=== PATIENT | female | born 1990 | race Caucasian/White ===

== ENCOUNTER 2023-11-09 12:45 | Outpatient (CLI) | payer OTHER, SELFPAY ==
--- NOTE | ~2023-11-09 | US_ITS ---
US breast LT limited DATE: 11/09/2023 13:40 INDICATION: Patient felt a lump in the left breast tail last week but does not feel the lump today. TECHNIQUE: Real-time and color flow imaging was performed in the area of clinical complaint at 1-2:00 from the nipple into the left axillary tail. COMPARISON: None FINDINGS: No suspicious mass or shadowing or suspicious vascularity, cyst or other significant abnorm al finding is noted. IMPRESSION: Negative examination Recommendation: Routine mammographic screening. Age 40 unless there are earlier symptoms or clinical findings. Reviewed, dictated and finalized at [facility]. Reviewed, dictated and finalized at [facility]. 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
== END 2023-11-09 12:46 | disposition home or self-care (01) ==
LOC: ANHIMG 12:50
PROVIDERS: Visit Provider Student in an Organized Health Care Education/Training Program
DX: N63.20 Unspecified lump in the left breast, unspecified quadrant (principal)
CPT/HCPCS: 76642

== ENCOUNTER 2024-02-23 14:49 | Outpatient (CLI) | payer OTHER, SELFPAY ==
[2024-02-25 02:04] LABS: DHEA-Sulfate 156 mcg/dL (19-237)
[2024-02-25 02:39] LABS: FSH 2.5 mIU/mL
[2024-02-25 19:38] LABS: Testosterone Total 79 ng/dL (2-45)
[2024-02-28 19:03] LABS: Anti Mullerian Hormone,Female 20.66 ng/mL (0.36-10.07)
[2024-03-04 04:58] LABS: Estradiol, Ultrasensitive 253 pg/mL
== END 2024-02-23 14:50 | disposition home or self-care (01) ==
LOC: ANHLAB 14:50
PROVIDERS: Visit Provider Student in an Organized Health Care Education/Training Program
DX: N91.2 Amenorrhea, unspecified (principal)
CPT/HCPCS: 36415; 82627; 82670; 83001; 84146; 84403; 84443

== ENCOUNTER 2024-12-03 09:26 | Emergency (ER) | payer OTHER, SELFPAY ==
[2024-12-03 09:28] VITALS: BP 111/74; PULSE 100; RESP 18; TEMP 36.3; O2SAT 100
[2024-12-03 09:46] VITALS: BP 125/85; PULSE 91; RESP 16; TEMP 36.9; O2SAT 100
[2024-12-03 10:01] VITALS: BP 124/99; PULSE 80; RESP 20; O2SAT 100
[2024-12-03 10:09] LABS: Basophils Percent Auto 0.5 % (0.2-1.2); Eosinophils Absolute Auto 0.2 K/mm3 (0-0.3); Hematocrit 42.1 % (37.0-47.0); Hemoglobin 14.1 g/dL (12.0-15.0); Immature Granulocyte Absolute 0.01 K/mm3 (0.00-0.031); Immature Granulocyte Percent A 0.2 % (0-0.5); Lymphocytes Absolute Auto 1.65 K/mm3 (0.9-3.2); Lymphocytes Percent Auto 27.1 % (18.3-44.2); Mean Corpuscular HGB Conc 33.5 g/dl (32-36); Mean Corpuscular Hemoglobin 30.5 pg (26-34); Mean Corpuscular Volume 91.1 fl (80-100); Mean Platelet Volume 10.7 fl (7.4-10.4); Monocytes Absolute Auto 0.6 K/mm3 (0.1-0.6); Neutrophils Absolute Auto 3.7 K/mm3 (1.3-6.7); Neutrophils Percent Auto 60.2 % (45.5-73.1); Platelet Count Result 219 k/mm3 (150-375); Red Blood Count 4.62 M/mm3 (4.2-5.4); Red Cell Distribution Width 12.9 % (11.5-14.5); White Blood Count 6.1 K/mm3 (4.5-10.0)
[2024-12-03 10:12] LABS: Alanine Aminotransferase 14 U/L (6-35); Albumin Level 4.3 g/dL (3.5-5.1); Alkaline Phosphatase 62 U/L (38-126); Anion Gap 12 mmol/L (4-12); Aspartate Amino Transferase 22 U/L (14-36); Bilirubin,Total 0.4 mg/dL (0.2-1.3); Blood Urea Nitrogen 16 mg/dL (7-17); Calcium 9.1 mg/dL (8.4-10.2); Carbon Dioxide 20 mmol/L (22-30); Chloride 107 mmol/L (98-107); Estimated CRCL calculation 82 ml/min; Estimated Glomerular Filt Rate > 60; Glucose 106 mg/dL (65-110); Lipase 84 U/L (23-300); Partial Thromboplastin Time 25.5 Seconds (22.3-36.8); Potassium 3.7 mmol/L (3.4-5.0); Prothrombin Time 13.3 Seconds (11.1-14.7); Sodium 139 mmol/L (137-145)
[2024-12-03 10:25] LABS: Troponin I < 0.012 ng/mL (0.000-0.034)
[2024-12-03] MEDS: ASPIRIN 81 MG CHEWABLE TABLET 324 MG PO (10:50)
[2024-12-03 10:51] VITALS: BP 123/80; PULSE 88; RESP 20; O2SAT 100
--- NOTE | 2024-12-03 12:12 | ED.CHESTPAIN ---
HPI - Chest Pain General Chief Complaint: Chest Pain Stated Complaint: CP Time Seen by Provider: 12/03/24 09:36 History of Present Illness HPI narrative: Patient is a 34-year-old female who presents the ER with chest pain. Central. Occasional moves left side into the right side. Ongoing for 2 weeks. Worse when she rolls over or pinches her shoulders together anteriorly. No pain with deep breath. No hemoptysis. No dyspnea. No exertional chest pain or dyspnea. No fevers or chills or sweats. Denies trauma. Intermittently takes ibuprofen without improvement. Related Data Allergies Allergy/AdvReac Type Severity Reaction Status Date / Time nitrofurantoin (From Allergy Mild Confusion Verified 12/03/24 09:49 Macrobid) FOR[facility]LY [facility] Past Medical History Medical History Kidney cysts Family History Family History Mother Lung cancer Hypertension Father COPD (chronic obstructive pulmonary disease) Grandparent Breast cancer Acute myocardial infarction Social History Social History Smoking status: Current every day smoker Tobacco type: cigarettes Alcohol intake: never Substance use: never Do You Feel Safe in your Home?: Yes Lack of Transportation: No Lack of Food: Never True Current Housing: I Have Housing Concerned About Future Housing: No Difficulty Paying Gas/Electric Bills: No Difficulty Paying for Meds: No Currently Unemployed: YES Education: High School Diploma/GED Difficulty w/ Childcare or Family Care: No Living arrangements: with family Occupation/Education: occupation Gender identity (if verbalized by the patient): Female Sexual Orientation (if Verbalized by the Patient): Straight or Heterosexual Course Course Emergency Course: Abnormal EKG but on reassessment talking to patient 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 Recommend continued follow-up. Troponin negative. Pain felt to be musculoskeletal. Vital Signs Vital signs: Vital Signs Temperature 97.3 F L 12/03/24 09:28 Pulse Rate 100 12/03/24 09:28 Respiratory Rate 18 12/03/24 09:28 Blood Pressure 111/74 12/03/24 09:28 Pulse Oximetry 100 12/03/24 09:28 Oxygen Delivery Room Air 12/03/24 09:28 Temperature 98.4 F 12/03/24 09:46 Pulse Rate 57 L 12/03/24 12:23 Respiratory Rate 16 12/03/24 12:23 Blood Pressure 110/71 12/03/24 12:23 Pulse Oximetry 100 12/03/24 12:23 Oxygen Delivery Room Air 12/03/24 09:46 MDM - Chest Pain Lab Data 12/03/24 09:54 12/03/24 09:54 Labs: Lab Results 12/03/24 Range/Units 09:54 WBC 6.1 (4.5-10.0) K/mm3 RBC 4.62 (4.2-5.4) M/mm3 Hgb 14.1 (12.0-15.0) g/dL Hct 42.1 (37.0-47.0) % MCV 91.1 (80-100) fl MCH 30.5 (26-34) pg MCHC 33.5 (32-36) g/dl RDW 12.9 (11.5-14.5) % Plt Count 219 (150-375) k/mm3 MPV 10.7 H (7.4-10.4) fl Immature Gran % (Auto) 0.2 (0-0.5) % Neut % (Auto) 60.2 (45.5-73.1) % Lymph % (Auto) 27.1 (18.3-44.2) % Elliott % (Auto) 9.0 H (2.6-8.5) % Eos % (Auto) 3.0 (0-4.4) % Baso % (Auto) 0.5 (0.2-1.2) % Lymph # (Auto) 1.65 (0.9-3.2) K/mm3 Elliott # (Auto) 0.6 (0.1-0.6) K/mm3 Eos # (Auto) 0.2 (0-0.3) K/mm3 Baso # (Auto) 0.0 (0.0-0.1) K/mm3 Abs Immat Gran (auto) 0.01 (0.00-0.031) K/mm3 Absolute Neuts (auto) 3.7 (1.3-6.7) K/mm3 Absolute Nucleated RBC 0.000 (0.0-0.012) K/mm3 Nucleated RBC % 0.0 (0.0-0.2) % PT 13.3 (11.1-14.7) Seconds INR 1.0 APTT 25.5 (22.3-36.8) Seconds Sodium 139 (137-145) mmol/L Potassium 3.7 (3.4-5.0) mmol/L Chloride 107 (98-107) mmol/L Carbon Dioxide 20 L (22-30) mmol/L Anion Gap 12 (4-12) mmol/L BUN 16 (7-17) mg/dL Creatinine 0.68 L (0.7-1.0) mg/dL Estim Creat Clear Calc 82 ml/min Estimated GFR > 60 (59 - ) Glucose 106 (65-110) mg/dL Calcium 9.1 (8.4-10.2) mg/dL Total Bilirubin 0.4 (0.2-1.3) mg/dL AST 22 (14-36) U/L ALT 14 (6-35) U/L Alkaline Phosphatase 62 (38-126) U/L Troponin I < 0.012 (0.000-0.034) ng/mL Total Protein 7.0 (6.3-8.2) g/dL Albumin 4.3 (3.5-5.1) g/dL Lipase 84 (23-300) U/L Imaging Data Radiologist's impression: ITS Impressions Chest X-Ray 12/03/24 10:29 IMPRESSION: No acute cardiopulmonary pathology. ECG Data EKG #1: ECG completion date: 12/03/24 ECG completion time: 09:33 EKG Interpretation: normal rate (92), sinus rhythm, ST depression, normal QRS, normal QT and NL axis EKG #2: ECG completion date: 12/03/24 ECG completion time: 11:56 EKG Interpretation: normal rate (61), sinus rhythm, ST depression, widened QRS, normal QT and other (Delta wave indicating WPW) Discharge Plan Discharge Clinical Impression: Acute chest wall pain Patient Disposition: Home, Self-Care Condition: Stable Instructions: Chest Wall Pain (ED) Additional Instructions: Please return to the emergency department if you develop severe and persistent chest pain, difficulty breathing, dizziness, leg swelling or if you are coughing up blood as these can be signs of a medical emergency. Please call your doctor for a follow up appointment to determine the need for further testing. Patient Language: Setswana Prescriptions: New naproxen 375 mg tablet 375 mg PO BID Qty: 14 0RF Follow-up/Referrals: UNKNOWN,DOCTOR [Primary Care Provider] - 1 Week
[2024-12-03 12:23] VITALS: BP 110/71; PULSE 57; RESP 16; O2SAT 100
== END 2024-12-03 12:25 | disposition home or self-care (01) ==
PROVIDERS: Emergency Provider Emergency Medicine
DX: R07.89 Other chest pain (principal); F17.210 Nicotine dependence, cigarettes, uncomplicated
CPT/HCPCS: 36415; 71046; 80053; 83690; 84484; 85025; 85610; 85730; 93005; 99284; A9270